=== PATIENT | male | born 1995 | race African-American/Black ===

== ENCOUNTER 2023-10-02 09:24 | Emergency (ER) | payer MEDICAID ==
[~2023-10-02] VITALS: Ht 172.7 cm; Wt 73.0 kg
[2023-10-02 09:29] VITALS: BP 122/68; PULSE 69; RESP 18; TEMP 97.9; O2SAT 98
[2023-10-02] MEDS ORDERED: LIDOCAINE HCL 1% 20ML VIAL (Pyxis) INJ INFIL ONE (10:00)
== END 2023-10-02 11:36 | disposition home or self-care (01) ==
LOC: ER 09:24
DX: S41.112A Laceration without foreign body of left upper arm, initial encounter (principal); W25.XXXA Contact with sharp glass, initial encounter; Y93.89 Activity, other specified; Y92.89 Other specified places as the place of occurrence of the external cause; Y99.8 Other external cause status
CPT/HCPCS: 12002; 99282; J3490; Z7610 ×3